=== PATIENT | male | born 1960 | race Caucasian/White ===

== ENCOUNTER 2017-09-12 16:55 | Inpatient (IN) | payer BC ==
[2017-09-12] MEDS ORDERED: ETOMIDATE 40 MG/20 ML INJ ONE (17:00)
[2017-09-12] MEDS ORDERED: NS 1,000 ML IV ONE ×2 (17:00→17:27)
[2017-09-12] MEDS ORDERED: ETOMIDATE 40 MG/20 ML INJ IVP ONE (17:02)
--- NOTE | 2017-09-12 17:14 | EDPHY ---
H & P Time Seen by Provider: 09/12/17 16:59 HPI/ROS: HPI SVT, pneumonia. 56-year-old male by ambulance from the urgent care [facility]. Dr. Mahamed Sewell, his wait staff was evaluating this patient. He came in with cough , palpitation and shortness of breath initially. He reports he developed a cough Sunday evening. He has a history of cardiomyopathy and lymphoma and has had an aortic valve replacement. He reports onset of palpitations at 12:30 p.m. today. EKG was performed at the [facility]. This showed SVT. The patient has an underlying left bundle branch block secondary to his aortic valve replacement. Dr. Mahamed Sewell gave the patient 6 mg of IV adenosine with no resolution of SVT followed by 12 mg of IV adenosine with no resolution. I spoke with Dr. Sewell personally. He recommends electrocardioversion followed by workup and treatment of the patient's pneumonia. He states the patient's rate has been consistent in the mid 160s under his care. ROS: Constitutional: No fever, no chills. No weakness. Eyes: No discharge. No changes in vision. ENT: No sore throat. No nasal congestion or rhinorrhea. Respiratory: As above. Cardiac: No chest pain, as above. Gastrointestinal: No abdominal pain, no vomiting, no diarrhea. Genitourinary: No hematuria. No dysuria or increased frequency with urination. Musculoskeletal: No back pain. No neck pain. No myalgias or arthralgias. Skin: No rashes. Neurological: No headache. No focal weakness or altered sensation. Past medical history: As above. Social history: Nonsmoker. Here by himself. Denies alcohol. Physical Exam: General Appearance: Alert, dry cough intermittently, he appears uncomfortable. This patient is responding to questions appropriately and in full sentences. This patient appears well-hydrated and well-nourished. Eyes: Pupils equal and round no pallor or injection. No lid edema, erythema or injection. Respiratory: There are no retractions, tachypneic with a respiratory rate 25, decreased lung sounds at the right base with scant rhonchi and wheezing. Cardiovascular: Tachycardia. No murmur appreciated. Gastrointestinal: Abdomen is soft and nontender, no masses, bowel sounds normal. No focal tenderness at McBurney's point. No Christopher sign. Neurological: Motor sensory function is grossly intact. Cranial nerves are normal. Skin: Warm and dry, no rashes. Musculoskeletal: Neck is supple and nontender. Extremities are symmetrical. All joints range without pain or impingement. Psychiatric: No agitation. No depression. Database: EKG: EKG time is 4:59 p.m.: EKG shows a regular tachycardia with ventricular rate of 167. Incomplete left bundle branch block. Appropriate discordance noted. Interpreted by me. EKG time is 5:26 p.m.: EKG shows a sinus tachycardia with ventricular rate of 122. There is an underlying left bundle-branch block with appropriate discordance. Interpreted by me. Imaging: Chest x-ray AP portable; the cardiac mediastinal silhouette is unremarkable. Infiltrative process right lower lung field. No pneumothorax.. No other acute cardiopulmonary disease process noted. Interpreted by me. Procedures: Procedure: Electrical cardioversion. The patient was electrically cardioverted for SVT after failed conversion with adenosine as noted. The patient was on a continuous vehicle monitor technician, with airway equipment at the bedside. The patient was on continuous pulse oximetry. The cardioversion was attempted with 300 joules biphasic current. The cardioversion was successful. The patient tolerated the procedure well with no complications. The procedure was performed by myself. Emergency department course: IV placed. Vital signs reviewed. EKG obtained and reviewed by myself. Patient started on IV normal saline with 1 L to be given over the next hour. I discussed electrocardioversion with the patient. This had already been discussed with him by Dr. Mahamed Sewell. He verbally consents. Plan will be to sedate the patient with 10 mg of IV etomidate followed by electrocardioversion. 5:35 p.m., patient has had 2 L of IV normal saline. He will be given 2 g of IV magnesium status post cardioversion. Given for potential bronco dilatory effects and antiarrhythmic effects. EKG repeated and reviewed by myself. He has a sinus tachycardia with an underlying left bundle branch block ventricular rate of 115-120. Severe sepsis protocol initiated. He will be given 1 g of IV Rocephin and 500 mg of IV azithromycin. 6:00 p.m., blood pressure currently 135/83. telemetry monitor shows a sinus rhythm with ventricular rate of 105. Patient has had 2 L of IV normal saline. 2nd lactate has been drawn. Plan for admission discussed with the patient. 6:15 p.m., repeat venous lactate is 1.6 after 2 L of IV normal saline. Blood pressure currently 155/74, vehicle monitor technician shows a sinus rhythm ventricular rate of 104. 6:20 p.m., spoke with on-call hospitalist Dr. Margoth Hooker. Case discussed in detail. Patient accepted for admission to the hospitalist service PCU. Differential Diagnosis: The differential diagnosis on this patient includes but is not limited to pneumonia, SVT. Acute coronary syndrome, pulmonary embolism unlikely. This represents a partial list of diagnoses considered. These considerations are based on history, physical exam, past history, reassessment and diagnostic testing. Smoking Status: Never smoked Constitutional: Initial Vital Signs Temperature (C) 38.8 C H 09/12/17 17:04 Heart Rate 166 H 09/12/17 17:04 Respiratory Rate 16 09/12/17 17:04 Blood Pressure 137/88 H 09/12/17 17:04 O2 Sat (%) 98 09/12/17 17:04 O2 Delivery Mode Nasal Cannula O2 (L/minute) 4 Allergies/Adverse Reactions: bacitracin [Bacitracin] Allergy (Intermediate, Verified 04/14/16 10:36) Other-Enter Comments adhesive [Adhesive] Allergy (Mild, Verified 04/14/16 10:36) Other-Enter Comments HAYFEVER Allergy (Mild, Uncoded 04/14/16 10:36) Other-Enter Comments Home Medications: Medication Instructions Recorded Aspirin [Aspirin 81mg (*)] 81 mg PO DAILY 03/01/16 Atorvastatin Calcium [Lipitor 20 20 mg PO HS 03/01/16 mg (*)] Levothyroxine [Synthroid 200 mcg 200 mcg PO DAILY06 03/01/16 (*)] Magnesium Oxide [Magnesium] 500 mg PO DAILY 03/01/16 Multivitamins [Multivitamin (*)] 1 each PO DAILY 03/01/16 Riboflavin [Vitamin B-2] 500 mg PO DAILY 03/01/16 Testosterone 10 gm TP DAILY 03/01/16 Ubidecarenone/Vit E Acet [Co Q-10 1 each PO DAILY 03/01/16 100 mg Softgel] Medical Decision Making Critical Care Time: I spent a total of 47 minutes of critical care time in obtaining history, performing a physical exam, bedside monitoring of interventions, collecting and interpreting tests and discussion with consultants but not including time spent performing procedures. - Data Points Laboratory Results: Laboratory Results 09/12/17 17:17 09/12/17 17:17 Microbiology Results: MICROBIOLOGY 09/12/17 18:10 Nasal, Sinus - Swab Respiratory Panel (PCR) - Final No Organism Detected Medications Given: Acetaminophen (Tylenol) 650 mg PO Q4 PRN PRN Reason: Pain, Mild/Fever, Can Take PO Stop: 03/11/18 22:52 Last Admin: 09/13/17 04:09 Dose: 650 mg Albuterol/Ipratropium (Duoneb) 3 ml IH Q6 HECTOR Stop: 03/12/18 00:00 Last Admin: 09/13/17 05:50 Dose: 3 ml Aspirin (Aspirin) 81 mg PO DAILY HECTOR Stop: 03/12/18 08:59 Last Admin: 09/13/17 09:31 Dose: 81 mg Benzonatate (Tessalon Pearles) 200 mg PO TID PRN PRN Reason: Cough, Mild Stop: 03/11/18 22:59 Last Admin: 09/13/17 04:12 Dose: 200 mg Enoxaparin Sodium (Lovenox) 40 mg SC DAILY HECOTR Stop: 03/12/18 08:59 Last Admin: 09/13/17 09:34 Dose: Not Given Guaifenesin/Codeine Phosphate (Robitussin Ac) 10 ml PO Q6HRS PRN PRN Reason: Cough, Moderate Stop: 03/11/18 22:59 Last Admin: 09/13/17 00:17 Dose: 10 ml Azithromycin 500 mg/ Dextrose 255 mls @ 255 mls/hr IV DAILY HECTOR PRN Reason: Protocol Stop: 10/13/17 08:59 Last Admin: 09/13/17 09:27 Dose: 255 mls Ceftriaxone Sodium/Dextrose (Rocephin 1 Gm (Premix)) 50 mls @ 100 mls/hr IV DAILY HECTOR PRN Reason: Protocol Stop: 10/13/17 08:59 Last Admin: 09/13/17 09:26 Dose: 50 mls Sodium Chloride (Ns) 1,000 mls @ 100 mls/hr IV CONT HECTOR Stop: 03/11/18 22:59 Last Admin: 09/12/17 23:25 Dose: 1,000 mls Levothyroxine Sodium (Synthroid) 200 mcg PO DAILY06 [facility] Stop: 03/12/18 05:59 Last Admin: 09/13/17 06:02 Dose: 200 mcg Metoprolol Succinate (Toprol Xl) 25 mg PO DAILY HECTOR Stop: 03/12/18 08:59 Last Admin: 09/13/17 09:31 Dose: 25 mg Prednisone (Prednisone) 40 mg PO DAILY HECTOR Stop: 03/11/18 22:59 Last Admin: 09/13/17 09:33 Dose: 40 mg Testosterone (Androgel 1%) 10 gm TD DAILY HECTOR Stop: 03/12/18 08:59 Last Admin: 09/13/17 10:04 Dose: Not Given Discontinued Medications Acetaminophen (Tylenol) 650 mg PO Q6H PRN PRN Reason: Pain, Mild/Fever, Can Take PO Stop: 03/11/18 19:55 Last Admin: 09/12/17 20:14 Dose: 650 mg Benzonatate (Tessalon Pearles) 100 mg PO EDNOW ONE Stop: 09/12/17 18:39 Last Admin: 09/12/17 18:41 Dose: 100 mg Etomidate (Etomidate) 10 mg IVP EDNOW ONE Stop: 09/12/17 17:03 Last Admin: 09/12/17 17:26 Dose: 10 mg Sodium Chloride (Ns) 1,000 mls @ 0 mls/hr IV EDNOW ONE; Wide Open PRN Reason: Protocol Stop: 09/12/17 17:01 Last Admin: 09/12/17 17:15 Dose: 1,000 mls Magnesium Sulfate (Magnesium Sulf 2 Gm (Premix)) 50 mls @ 50 mls/hr IV EDNOW ONE Stop: 09/12/17 18:23 Last Admin: 09/12/17 17:39 Dose: 50 mls Sodium Chloride (Ns) 1,000 mls @ 0 mls/hr IV ONCE ONE PRN Reason: Wide Open Stop: 09/12/17 17:28 Last Admin: 09/12/17 17:27 Dose: 1,000 mls Azithromycin 500 mg/ Dextrose 255 mls @ 255 mls/hr IV EDNOW ONE PRN Reason: Protocol Stop: 09/12/17 18:36 Last Admin: 09/12/17 18:18 Dose: 255 mls Ceftriaxone Sodium/Dextrose (Rocephin 1 Gm (Premix)) 50 mls @ 100 mls/hr IV EDNOW ONE PRN Reason: Protocol Stop: 09/12/17 18:06 Last Admin: 09/12/17 17:45 Dose: 50 mls Sodium Chloride (Ns) 2,700 mls @ 5,400 mls/hr 30 ml/kg infuse over 30 min ( 2700 ml) IV EDNOW ONE PRN Reason: Protocol Stop: 09/12/17 18:06 Last Admin: 09/12/17 18:20 Dose: Not Given Departure - Departure Disposition: [facility] Inpatient Acute Clinical Impression: SVT (supraventricular tachycardia), Pneumonia, Severe sepsis, Elevated troponin , Reactive airway disease
--- NOTE | 2017-09-12 17:15 | CPEKG ---
Heart Rate: 167 RR Interval: 359 QRSD Interval: 120 QT Interval: 304 QTC Interval: 507 P [place]: 0 QRS [place]: 43 T Wave [place]: -85 EKG Severity - ABNORMAL ECG - EKG Impression: SUPRAVENTRICULAR TACHYCARDIA EKG Impression: INCOMPLETE LEFT BUNDLE BRANCH BLOCK EKG Impression: ANT-SEPT INJURY, PROBABLE EARLY ACUTE INFARCT Electronically Signed By: Angelica Jane 12-Sep-2017 20:58:51
[2017-09-12] MEDS ORDERED: MAGNESIUM SULF 2 GM/WATER 50 ML IV ONE (17:24)
[2017-09-12 17:27] LABS: % IMMATURE GRANULYOCYTES 0.4 % (0.0-1.1); ABSOLUTE IMMATURE GRANULOCYTES 0.06 10^3/uL (0.00-0.10); ADD DIFF? NO; ADD MORPH? NO; ADD SCAN? NO; ATYPICAL LYMPHOCYTE FLAG 20 (0-99); FRAGMENT RBC FLAG 0 (0-99); HEMATOCRIT 47.4 % (40.0-51.0); HEMOGLOBIN 16.4 g/dL (13.7-17.5); LEFT SHIFT FLG 20 (0-99); LIPEMIA HEMOLYSIS FLAG 90 (0-99); MEAN CELL HEMOGLOBIN 31.8 pg (27.9-34.1); MEAN CELL HEMOGLOBIN CONCENTR. 34.6 g/dL (32.4-36.7); MEAN PLATELET VOLUME 10.4 fL (8.7-11.7); PLATELET CLUMPS FLAG 0 (0-99); PLATELET COUNT 239 10^3/uL (150-400); RED BLOOD CELL COUNT 5.15 10^6/uL (4.40-6.38); RED CELL DISTRIBUTION WIDTH 14.9 % (11.5-15.2)
--- NOTE | 2017-09-12 17:27 | CPEKG ---
Heart Rate: 122 RR Interval: 492 P-R Interval: 136 QRSD Interval: 124 QT Interval: 344 QTC Interval: 490 P [place]: 66 QRS [place]: 42 T Wave [place]: 84 EKG Severity - ABNORMAL ECG - EKG Impression: SINUS TACHYCARDIA EKG Impression: PROBABLE LEFT ATRIAL ABNORMALITY EKG Impression: LEFT BUNDLE BRANCH BLOCK Electronically Signed By: Angelica Jane 12-Sep-2017 20:58:51
[2017-09-12] MEDS ORDERED: NS 2,700 ML IV ONE (17:37)
[2017-09-12] MEDS ORDERED: AZITHROMYCIN IV 500 MG in D5W 250 ML IV ONE (17:37)
[2017-09-12 17:38] LABS: INR 1.12 (0.83-1.16); PROTIME(PATIENT) 14.3 SEC (12.0-15.0)
[2017-09-12 17:39] LABS: APTT 29.7 SEC (23.0-38.0)
[2017-09-12 17:48] LABS: ANION GAP 15 mEq/L (8-16); CALCIUM 8.5 mg/dL (8.5-10.4); CARBON DIOXIDE 24 mEq/l (22-31); CHLORIDE 100 mEq/L (97-110); CREATININE 1.2 mg/dL (0.7-1.3); GLOMERULAR FILTRATION RATE > 60; GLUCOSE 88 mg/dL (70-100); POTASSIUM 4.7 mEq/L (3.5-5.2); SODIUM 139 mEq/L (134-144)
[2017-09-12 17:59] LABS: TROPONIN I 0.156 ng/mL (0.000-0.034)
[2017-09-12 18:22] LABS: LACGHOST ORDER
[2017-09-12] MEDS ORDERED: BENZONATATE 100 MG CAP PO ONE (18:38)
[2017-09-12] MEDS ORDERED: ACETAMINOPHEN 325 MG TAB PO PRN (19:56)
[2017-09-12] MEDS ORDERED: ONDANSETRON 4 MG/2 ML VIAL IVP PRN (22:53)
[2017-09-12] MEDS ORDERED: NS 1,000 ML IV SCH (23:00)
[2017-09-12] MEDS: predniSONE 20 MG TAB PO SCH (23:24)
[2017-09-12] MEDS: IPRATROPIUM/ALBUTEROL 3 ML DEYVIAL IH SCH (23:30)
[2017-09-13] MEDS: ACETAMINOPHEN 325 MG TAB PO PRN ×4 (00:17→19:23)
[2017-09-13] MEDS: guaiFENesin/CODEINE PHOS 10 ML UDCUP PO PRN ×2 (00:17→22:34)
--- NOTE | 2017-09-13 02:34 | GHP ---
[f rep st] HISTORY AND PHYSICAL DATE OF ADMISSION: 09/12/2017 CHIEF COMPLAINT: Tachycardia, cough. HISTORY: The patient is a 56-year-old male who got sick starting Sunday night when he developed a fe ralph. He has had cough and shortness of breath. He tried to tough it out at home until today he noti stevie his heart rate was 160. He presented to [facility] and was found to be in SVT. He was give n 6 mg and then 12 mg of IV adenosine without result. He subsequently came to the emergency room. I n the ER, he was successfully cardioverted. He complains of a dry nonproductive cough. He has chest wall pain secondary to the excessive coughin g. He also felt a little chest pain when his heart rate was running 160. He did get a flu shot this year. PAST MEDICAL HISTORY: 1. 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 2. Congestive heart failure secondary to diastolic dysfunction. 3. Radiation-induced aortic stenosis, status post porcine aortic valve replacement in 1999. 4. 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 5. Follicular thyroid cancer. 6. Malignant melanoma, status post resection. 7. Radiation-induced coronary artery disease. MEDICATIONS: Please see computer record for full detailed list. ALLERGIES: Bacitracin. SOCIAL HISTORY: No smoking. One glass of wine per week. He lives his . He works as a software support representative. REVIEW OF SYSTEMS: Complete review of systems obtained. Review of systems is negative regarding con stitutional, HEENT, GI, pulmonary, cardiovascular, , hematology, skin, musculoskeletal, endocrine, psych, except for positives and negatives as noted in HPI. FAMILY HISTORY: Reviewed and noncontributory to presenting complaint. PHYSICAL EXAMINATION: GENERAL: Well-developed, well-nourished male, in no acute distress. VITAL SI GNS: Temperature 39.4, pulse 125, blood pressure 168/78, saturating 94% on 4 L. EYES: Normal conju nctivae. Pupils are equal, round, reactive to light. ENT: Normal ears and nose. Hearing intact. Normal lips and teeth. Oropharynx moist. NECK: Trachea midline. No thyromegaly. CHEST: Normal r espiratory effort. LUNGS: Tight wheezes throughout with rales and rhonchi. CARDIOVASCULAR: Regula r rate and rhythm. No murmur. No lower extremity edema. ABDOMEN: Soft. Nontender. No hepatosple nomegaly. SKIN: Warm, dry, intact. No rash. MUSCULOSKELETAL: No cyanosis or clubbing. Strength 5/5 upper and lower extremities. NEUROLOGIC: Cranial nerves intact. Normal sensation to light touc h. PSYCH: Alert and oriented x3. Normal mood and affect. Normal judgment and insight. Normal mem ory. LABORATORY DATA: White count 16.03, hematocrit 47.4, platelets 239. Sodium 139, potassium 4.7, chlo ride 100, bicarb 24, BUN 14, creatinine 1.2, glucose 88. INR is 1.12. Troponin 0.156. Lactate init ially 2.3, now down to 1.6. EKG, reviewed by me, my personal interpretation is normal sinus tachycardia with left bundle branch b lock. Chest x-ray is positive for right lower lobe pneumonia. ASSESSMENT AND PLAN: 1. Pneumonia with severe sepsis. Blood cultures have been sent. His lactate is clearing with IV fl uids. Will continue ceftriaxone and azithromycin. 2. Reactive airways disease exacerbation. He has extensive wheezing. Will start him on steroids an d nebulizers. 3. Supraventricular tachycardia, status post adenosine without results, subsequent cardioversion in the emergency room. Will continue to monitor. Will watch on telemetry and check an echocardiogram. Will start a low-dose daily metoprolol. 4. Troponin elevation. I suspect this is due to the rapid rate of his supraventricular tachycardia but will trend troponins and could consider stress testing, especially since he developed chest pain during these episodes of rapid rates. 5. Burkitt lymphoma, in remission. 6. Porcine aortic valve replacement. Will recheck an echocardiogram as above. CODE STATUS: Full. ADMISSION STATUS: Will admit to inpatient. As he is medically complex, anticipate greater than 2 mi dnights. DEEP VENOUS THROMBOSIS PROPHYLAXIS: He is high risk. Will place on subcu Lovenox. /[id number]/MODL
[2017-09-13] MEDS: BENZONATATE 100 MG CAP PO PRN ×3 (04:12→20:32)
[2017-09-13] MEDS: IPRATROPIUM/ALBUTEROL 3 ML DEYVIAL IH SCH ×4 (05:50→23:08)
[2017-09-13] MEDS: LEVOTHYROXINE 100 MCG TAB PO SCH (06:02)
[2017-09-13 06:25] LABS: % IMMATURE GRANULYOCYTES 0.4 % (0.0-1.1); ABSOLUTE IMMATURE GRANULOCYTES 0.05 10^3/uL (0.00-0.10); ADD DIFF? NO; ADD MORPH? NO; ADD SCAN? NO; ATYPICAL LYMPHOCYTE FLAG 0 (0-99); FRAGMENT RBC FLAG 0 (0-99); HEMATOCRIT 44.2 % (40.0-51.0); HEMOGLOBIN 15.2 g/dL (13.7-17.5); LEFT SHIFT FLG 0 (0-99); LIPEMIA HEMOLYSIS FLAG 90 (0-99); MEAN CELL HEMOGLOBIN 31.6 pg (27.9-34.1); MEAN CELL HEMOGLOBIN CONCENTR. 34.4 g/dL (32.4-36.7); MEAN CELL VOLUME 91.9 fL (81.5-99.8); MEAN PLATELET VOLUME 10.4 fL (8.7-11.7); PLATELET CLUMPS FLAG 10 (0-99); PLATELET COUNT 207 10^3/uL (150-400); RED BLOOD CELL COUNT 4.81 10^6/uL (4.40-6.38); RED CELL DISTRIBUTION WIDTH 14.9 % (11.5-15.2)
[2017-09-13 06:41] LABS: ANION GAP 13 mEq/L (8-16); CALCIUM 8.1 mg/dL (8.5-10.4); CARBON DIOXIDE 22 mEq/l (22-31); CHLORIDE 104 mEq/L (97-110); CHOLESTEROL 111 mg/dL (140-220); CHOLESTEROL/HDL RATIO 3.08 RATIO (1.00-4.97); CREATININE 1.1 mg/dL (0.7-1.3); GLOMERULAR FILTRATION RATE > 60; GLUCOSE 173 mg/dL (70-100); HIGH DENSITY LIPOPROTEIN 36 mg/dL (40-65); LDL/HDL RATIO 1.75 RATIO (1.00-3.64); LOW DENSITY LIPOPROTEIN 63 mg/dL (80-100); NON-HIGH DENSITY LIPOPROTEIN 75 mg/dL (90-129); POTASSIUM 5.2 mEq/L (3.5-5.2); SODIUM 139 mEq/L (134-144); TRIGLYCERIDE 62 mg/dL (40-150); VERY LOW DENSITY LIPOPROTEINS 12 mg/dL (8-25)
[2017-09-13 06:48] LABS: TROPONIN I 0.208 ng/mL (0.000-0.034)
[2017-09-13] MEDS ORDERED: ENOXAPARIN 40 MG/0.4 ML SYR SC SCH (09:00)
[2017-09-13] MEDS ORDERED: TESTOSTERONE 1% 5 GM GEL PKT TD SCH (09:00)
--- NOTE | 2017-09-13 09:12 | CPEKG ---
Heart Rate: 91 RR Interval: 659 P-R Interval: 156 QRSD Interval: 138 QT Interval: 428 QTC Interval: 527 P [place]: 70 QRS [place]: 59 T Wave [place]: 81 EKG Severity - ABNORMAL ECG - EKG Impression: SINUS RHYTHM EKG Impression: PROBABLE LEFT ATRIAL ABNORMALITY EKG Impression: LEFT BUNDLE BRANCH BLOCK Electronically Signed By: Brad Christie 13-Sep-2017 18:23:07
[2017-09-13] MEDS: AZITHROMYCIN IV 500 MG in D5W 250 ML IV SCH (09:27)
[2017-09-13] MEDS: ASPIRIN 81 MG CHEWABLE TAB PO SCH (09:31)
[2017-09-13] MEDS: METOPROLOL SUCCINATE XR 25 MG TAB PO SCH (09:31)
[2017-09-13] MEDS: predniSONE 20 MG TAB PO SCH (09:33)
--- NOTE | 2017-09-13 10:50 | PDMN ---
Medical Necessity Medical necessity: Patient meets INPT criteria per physician note and MCG Systemic or Infectious Condition GRG (presents with severe sepsis w/lactic acid of 2.3, Tmax 39.4, ongoing tachycardia of 120's after SVT cardioversion; elevated troponins likely due to rapid rate of earlier SVT; CXR shows persistent RLL pneumonia; anticipated LOS > 2 midnights for IV antibiotics, freq nebs, initiation of steroids.)
[2017-09-13] MEDS: guaiFENesin 600 MG TAB.ER PO SCH ×2 (12:22→20:32)
--- NOTE | 2017-09-13 13:55 | ASMTCMCOM ---
CM Note CM Note Notes: Patient admitted for PNA and RAD. He is being treated with antibiotics, steroids, and nebulizers. Also being monitored via telemtry for SVT. He lives with , works, and is independent in all ADLs. No therapies ordered, no d/c needs anticipated. CM available if needs arise. Date Signed: 09/13/2017 01:55 PM Electronically Signed By:Glenna Fuller RN
--- NOTE | 2017-09-13 16:16 | ECHO ---
[email or web address] [address] Main: [phone] Fax: Transthoracic Echocardiogram Name: JOSE HAMMONDS MR#: [id number] Study Date: 09/13/2017 Study Time: 02:28 PM Date of : 1960 Age: 56 year(s) Height: 180.3 cm (71 in.) Weight: 90.27 kg (199 lb.) BSA: 2.1 m2 Gender: Male Examination: Echo Indication: Supraventricular Tachycardia, hx of AVR Image Quality: Contrast: Requested by: Margoth Hooker BP: 108 mmHg/72 mmHg Heart Rate: Rhythm: Indication: Supraventricular Tachycardia, hx of AVR Procedure Staff Screen Printing Machine Operator: Luisa Sabillon Reading Physician: Vinny Jaime Requesting Provider: Conclusions: Normal size left ventricle. Mild concentric LV hypertrophy. The ejection fraction is estimated to be 60-65 %. LV septal motion consistent with post-op state. The left atrium is mildly dilated. Mild mitral annular calcification. Mild to moderate mitral regurgitation. Aortic valve prosthesis is normal. The aortic valve is a porcine bioprosthesis. Mild tricuspid regurgitation is present. The pulmonary artery pressure is normal. Measurements: Chambers Valvular Assessment AV/MV Valvular Assessment TV/PV Normal Normal Normal Name Value Range Name Value Range Name Value Range IVSd (2D): 1.4 cm (0.6 cm-1.1 AV meanP mmHg ( - ) TR Vmax: 2.52 mm/s ( - ) cm) MIGUEL (VTI): 0.8 cm ( - ) TR PGmax: 25 mmHg ( - ) LVDd (2D): 4.1 cm (4.2 cm-5.9 MV E Vmax: 1.69 m/s ( - ) syst. PAP: 30 mmHg ( - ) cm) MV A Vmax: 1.23 m/s ( - ) LVDs (2D): 2.5 cm (2.1 cm-4 MV E/A: 1.37 ( - ) cm) MV meanP mmHg ( - ) LVPWd (2D): 1.2 cm (0.6 cm-1 cm) MV PHT: 0.063 s ( - ) LVOTd 1.6 cm 1.6 cm mm MVA (Vmax): 1.3 m/s ( - ) LVEF (MOD4): 69 % (>=55 %) MVA (PHT): 3.5 s ( - ) EF Range: 60-65 % Continued Measurements: Chambers Valvular Assessment AV/MV Valvular Assessment TV/PV Patient: JOSE HAMMONDS Study Date: 09/13/2017 Page 1 of 2 02:28 PM Name Value Name Value Name Value LADs: 4.0 cm MV DecTime: 214 m/s CVP (est.): 5 mmHg LADs Lon.8 cm MV VTI: 34.00 cm LA Area: 22.5 cm2 Findings: Left Ventricle: Normal size left ventricle. Mild concentric LV hypertrophy. The ejection fraction is estimated to be 60-65 %. LV septal motion consistent with post-op state. Right Ventricle: Normal size right ventricle. Left Atrium: The left atrium is mildly dilated. Right Atrium: The right atrium is normal in size. Mitral Valve: Mild mitral annular calcification. Mild to moderate mitral regurgitation. The mitral valve leaflets appear thickened, but open well. MV max PG is 13mmHG. MV mean PG is 5mmHG.. Aortic Valve: Aortic valve prosthesis is normal. The aortic valve is a porcine bioprosthesis. AV max PG is 32mmHG. AV mean PG is 18mmHG.. Tricuspid Valve: The tricuspid valve appears normal. Mild tricuspid regurgitation is present. The pulmonary artery pressure is normal. Pulmonic Valve: The pulmonic valve is normal in appearance. Pericardium: No pericardial effusion. (No Signature Object) Patient: JOSE HAMMONDS Study Date: 09/13/2017 Page 2 of 2 02:28 PM [id number]
--- NOTE | 2017-09-13 16:44 | HOSPPROG ---
Hospitalist Progress Note Assessment/Plan: Assessment: 56-year-old male presents with severe sepsis in the setting of acute reactive airway exacerbation, community-acquired pneumonia, supraventricular tachycardia Plan: 1. Severe sepsis. Present on admission, evidenced by autonomic dysregulation in the setting of infection with notable tachycardia, tachypnea, fever, leukocytosis, end-organ failure including myocardial ischemia with elevated troponin level, metabolic lactic acidosis -status post empiric IV antibiotics and IV fluids 2. Community-acquired pneumonia. Present on admission, evidenced by right lower lobe infiltrate on chest x-ray, personally interpreted with tachypnea, cough, oxygen requirement -continue supplemental oxygen -day 2 of IV ceftriaxone and IV azithromycin -blood cultures currently pending, respiratory viral panel negative 3. Acute reactive airway exacerbation. Evidenced by diffuse expiratory wheezes and bronchial breath sounds, likely precipitated by pneumonia -unresolved, bronchial breath sounds persist -day 2 of 5 of prednisone -continue scheduled duo nebs -supportive care with antitussives mucolytics 4. Acute metabolic acidosis. Secondary to lactic acid, in the setting of severe sepsis, improved with IV fluids and treatment of sepsis 5. Transient myocardial ischemia. The troponin level 0.2, secondary to a end- organ failure the setting sepsis -recommend outpatient cardiac risk stratification after this acute episode has resolved 6. Supraventricular tachycardia. Acute, new problem this provider, further workup indicated. Most likely provoked in the setting of severe infection, patient without any known history of atrial arrhythmia, EKG on presentation with clear SVT, sinus tach after cardioversion, personally interpreted EKG -reviewed outside records including 03/16/2016 cardiology progress note by Dr. Mahamed Sewell, reports the patient has had history of pulmonary edema and poor seen valve, but no arrhythmia, only mild stenosis -get echocardiogram -recommend outpatient cardiology follow-up which should include outpatient rn cardiac rehab to gauge recurrence, burden -cardioverted in the emergency department 7. Chronic diastolic congestive heart failure. No evidence of acute exacerbation, continue monitor volume status closely Diet. Regular Prophylaxis. High risk patient, patient declined Lovenox, placed on SCDs Code. Full Disposition. Anticipated discharge uncertain, remains clinically on resolved Subjective: Patient reports ongoing shortness of breath with any activity Objective: Vital Signs Temp Pulse Resp BP Pulse Ox 36.8 C 92 22 H 130/80 H 95 09/13/17 15:17 09/13/17 15:17 09/13/17 15:17 09/13/17 15:17 09/13/17 15:17 Laboratory Results 09/13/17 06:00 09/13/17 06:00 09/12/17 09/13/17 09/14/17 05:59 05:59 05:59 Intake Total 1223 Output Total 1775 1000 Balance -552 -1000 PT 14.3 SEC (12.0-15.0) 09/12/17 17:17 INR 1.12 (0.83-1.16) 09/12/17 17:17 - Physical Exam Constitutional: no apparent distress, not in pain, uncomfortable, other ( Acutely ill-appearing) Cardiovascular: systolic murmur (1/6 at the sternum), No irregularly irregular, No tachycardia, No edema Respiratory: bronchial breath sounds (Bilaterally), rhonchi (Right base), No expiratory wheeze, No respiratory distress Gastrointestinal: normoactive bowel sounds, soft, non-tender abdomen, no palpable masses Neurologic: AAOx3, sensation intact bilaterally, No weakness, No facial droop Psychiatric: interacting appropriately, not anxious, not encephalopathic, thought process linear ICD10 Worksheet Patient Problems: Problems Problem Status Onset Elevated troponin Acute Pneumonia Acute Reactive airway disease Acute SVT (supraventricular tachycardia) Acute Severe sepsis Acute Cough Acute Hypoxia Acute Pulmonary edema Acute
[2017-09-13] MEDS: CEPACOL LOZENGE PO PRN (19:36)
[2017-09-13] MEDS: ATORVASTATIN CALCIUM 20 MG TAB PO SCH (20:32)
[2017-09-14] MEDS: ACETAMINOPHEN 325 MG TAB PO PRN ×5 (01:43→21:37)
[2017-09-14] MEDS ORDERED: METOCLOPRAMIDE 10 MG/2 ML VIAL IVP ONE (03:03)
[2017-09-14] MEDS: CEPACOL LOZENGE PO PRN (03:19)
[2017-09-14] MEDS: BENZONATATE 100 MG CAP PO PRN ×3 (04:51→21:32)
[2017-09-14] MEDS: guaiFENesin/CODEINE PHOS 10 ML UDCUP PO PRN ×2 (04:51→23:02)
[2017-09-14 05:33] LABS: ANION GAP 11 mEq/L (8-16); CALCIUM 8.3 mg/dL (8.5-10.4); CARBON DIOXIDE 26 mEq/l (22-31); CHLORIDE 103 mEq/L (97-110); CREATININE 1.1 mg/dL (0.7-1.3); GLOMERULAR FILTRATION RATE > 60; GLUCOSE 79 mg/dL (70-100); POTASSIUM 4.2 mEq/L (3.5-5.2); SODIUM 140 mEq/L (134-144)
[2017-09-14] MEDS: IPRATROPIUM/ALBUTEROL 3 ML DEYVIAL IH SCH ×4 (06:09→23:23)
[2017-09-14] MEDS: LEVOTHYROXINE 100 MCG TAB PO SCH (06:19)
[2017-09-14] MEDS: guaiFENesin 600 MG TAB.ER PO SCH ×2 (08:01→21:29)
[2017-09-14] MEDS: ASPIRIN 81 MG CHEWABLE TAB PO SCH (08:01)
[2017-09-14] MEDS: METOPROLOL SUCCINATE XR 25 MG TAB PO SCH (08:01)
[2017-09-14] MEDS: predniSONE 20 MG TAB PO SCH (08:01)
[2017-09-14] MEDS: AZITHROMYCIN IV 500 MG in D5W 250 ML IV SCH (09:25)
[2017-09-14] MEDS ORDERED: FUROSEMIDE 20 MG/2 ML VIAL IVP ONE (10:25)
--- NOTE | 2017-09-14 10:35 | HOSPPROG ---
Hospitalist Progress Note Assessment/Plan: # acute hypoxic resp failure - clinical picture most c/w pna, however consider PE given hypoxia and risk factors - check CTA tomorrow if still very hypoxic and renal function ok; I am reluctant to order CTA today with lasix IV and borderline SCr - IS, flutter valve # R basilar pna, RAD exacerbation - cont to tx for CAP with rocephin and azith; cont pred - follow sputum cx and blood cx # severe sepsis - d/t pna; resolved # indet troponin - d/t demand; cath 2014 with mild CAD - agree with outpatient stress # SVT - resolved with DCCV - cont metop # acute on chronic dCHF, porcine AVR - lasix 20 IV x 1 today # hypothyroid - synthroid Subjective: fever last night; still feels very SOB Objective: Vital Signs Temp Pulse Resp BP Pulse Ox 36.9 C 103 H 20 114/71 94 09/14/17 08:00 09/14/17 08:01 09/14/17 08:00 09/14/17 08:01 09/14/17 08:00 Microbiology 09/13/17 22:30 - Final Sputum, Expectorated Laboratory Results 09/13/17 06:00 09/14/17 04:08 09/13/17 09/14/17 09/15/17 05:59 05:59 05:59 Intake Total 1223 2150 Output Total 1775 2550 Balance -552 -400 PT 14.3 SEC (12.0-15.0) 09/12/17 17:17 INR 1.12 (0.83-1.16) 09/12/17 17:17 chart reviewed CXR personally reviewed - Physical Exam Ears, Nose, Mouth, Throat: moist mucous membranes, hearing normal Cardiovascular: regular rate and rhythym, no murmur, rub, or gallop Respiratory: inspiratory crackles (R base), respiratory distress (mild), No expiratory wheeze, No rhonchi Gastrointestinal: normoactive bowel sounds, soft, non-tender abdomen, no palpable masses ICD10 Worksheet Patient Problems: Problems Problem Status Onset Severe sepsis Acute Cough Acute Pulmonary edema Acute Hypoxia Acute SVT (supraventricular tachycardia) Acute Pneumonia Acute Elevated troponin Acute Reactive airway disease Acute
[2017-09-14] MEDS: ATORVASTATIN CALCIUM 20 MG TAB PO SCH (21:29)
[2017-09-15] MEDS: LEVOTHYROXINE 100 MCG TAB PO SCH (04:35)
[2017-09-15] MEDS: guaiFENesin/CODEINE PHOS 10 ML UDCUP PO PRN ×2 (04:37→23:45)
[2017-09-15] MEDS: IPRATROPIUM/ALBUTEROL 3 ML DEYVIAL IH SCH ×3 (05:38→17:02)
[2017-09-15 05:54] LABS: % IMMATURE GRANULYOCYTES 0.3 % (0.0-1.1); ABSOLUTE IMMATURE GRANULOCYTES 0.04 10^3/uL (0.00-0.10); ABSOLUTE NRBC COUNT 0.02 10^3/uL (0-0.01); ADD DIFF? NO; ADD MORPH? NO; ADD SCAN? NO; ATYPICAL LYMPHOCYTE FLAG 0 (0-99); FRAGMENT RBC FLAG 10 (0-99); HEMATOCRIT 41.2 % (40.0-51.0); HEMOGLOBIN 14.1 g/dL (13.7-17.5); LEFT SHIFT FLG 10 (0-99); LIPEMIA HEMOLYSIS FLAG 90 (0-99); MEAN CELL HEMOGLOBIN 31.4 pg (27.9-34.1); MEAN CELL HEMOGLOBIN CONCENTR. 34.2 g/dL (32.4-36.7); MEAN CELL VOLUME 91.8 fL (81.5-99.8); MEAN PLATELET VOLUME 11.2 fL (8.7-11.7); NRBC-AUTO% 0.2 % (0.0-0.2); PLATELET CLUMPS FLAG 10 (0-99); PLATELET COUNT 240 10^3/uL (150-400); RED BLOOD CELL COUNT 4.49 10^6/uL (4.40-6.38); RED CELL DISTRIBUTION WIDTH 15.2 % (11.5-15.2)
[2017-09-15 06:11] LABS: ANION GAP 13 mEq/L (8-16); CALCIUM 8.4 mg/dL (8.5-10.4); CARBON DIOXIDE 28 mEq/l (22-31); CHLORIDE 102 mEq/L (97-110); GLOMERULAR FILTRATION RATE > 60; GLUCOSE 77 mg/dL (70-100); POTASSIUM 4.2 mEq/L (3.5-5.2); SODIUM 143 mEq/L (134-144)
[2017-09-15] MEDS: predniSONE 20 MG TAB PO SCH (07:51)
[2017-09-15] MEDS: ASPIRIN 81 MG CHEWABLE TAB PO SCH (07:51)
[2017-09-15] MEDS: guaiFENesin 600 MG TAB.ER PO SCH ×2 (07:51→22:16)
[2017-09-15] MEDS: METOPROLOL SUCCINATE XR 25 MG TAB PO SCH (07:51)
[2017-09-15] MEDS: ACETAMINOPHEN 325 MG TAB PO PRN (07:53)
[2017-09-15] MEDS: AZITHROMYCIN IV 500 MG in D5W 250 ML IV SCH (08:40)
--- NOTE | 2017-09-15 10:00 | HOSPPROG ---
Hospitalist Progress Note Assessment/Plan: # acute hypoxic resp failure - clinical picture most c/w pna and pulm edema, however consider PE given hypoxia and risk factors - cont with abx, lasix - IS, flutter valve # R basilar pna, RAD exacerbation - cont to tx for CAP with rocephin and azith; cont pred - sputum cx with oropharyngeal akash # severe sepsis - d/t pna; resolved # indet troponin - d/t demand; cath 2014 with mild CAD - discussed options - consider CT cor in next few days # SVT - resolved with DCCV - cont metop # acute on chronic dCHF, porcine AVR - better today, cont lasix IV - will follow with Dr Sewell as outpatient # hypothyroid - synthroid Subjective: breathing feels better today; discussed all options in managment of his care Objective: Vital Signs Temp Pulse Resp BP Pulse Ox 36.8 C 82 22 H 118/72 94 09/15/17 08:00 09/15/17 08:00 09/15/17 08:00 09/15/17 08:00 09/15/17 08:00 Microbiology 09/13/17 22:30 - Final Sputum, Expectorated Laboratory Results 09/15/17 04:29 09/15/17 04:29 09/14/17 09/15/17 09/16/17 05:59 05:59 05:59 Intake Total 2150 1975 Output Total 2550 1805 Balance -400 170 PT 14.3 SEC (12.0-15.0) 09/12/17 17:17 INR 1.12 (0.83-1.16) 09/12/17 17:17 - Time Spent With Patient Time Spent with Patient: greater than 35 minutes Time Spent with Patient: Greater than 35 minutes spent on this patients care, greater than 50% of time spent counseling, educating, and coordinating care regarding the above mentioned plan. - Physical Exam Constitutional: no apparent distress, appears nourished Cardiovascular: regular rate and rhythym, systolic murmur, diastolic murmur, No irregularly irregular Respiratory: no rales or rhonchi, clear to auscultation, respiratory distress ( mild) Gastrointestinal: normoactive bowel sounds, soft, non-tender abdomen, no palpable masses ICD10 Worksheet Patient Problems: Problems Problem Status Onset Severe sepsis Acute Cough Acute Pulmonary edema Acute Hypoxia Acute SVT (supraventricular tachycardia) Acute Pneumonia Acute Elevated troponin Acute Reactive airway disease Acute
[2017-09-15] MEDS: FUROSEMIDE 20 MG/2 ML VIAL IVP SCH ×2 (10:10→15:08)
--- NOTE | 2017-09-15 12:05 | SOAPPROG ---
SOAP Progress Note Assessment/Plan: Assessment: 1. PNA 2.CHF, valvular heart disease 3.History of hodgkins 4.History Burkitts like lymphoma Plan:Continue current rx, will follow 09/15/17 12:03 Subjective: Feeling better Objective: Vital Signs Temp Pulse Resp BP Pulse Ox 98.3 F 82 22 H 118/72 94 09/15/17 08:00 09/15/17 08:00 09/15/17 08:00 09/15/17 08:00 09/15/17 08:00 Microbiology 09/13/17 22:30 - Final Sputum, Expectorated Laboratory Results 09/15/17 04:29 09/15/17 04:29 09/14/17 09/15/17 09/16/17 05:59 05:59 05:59 Intake Total 2150 1975 800 Output Total 2550 1805 900 Balance -400 170 -100 PT 14.3 SEC (12.0-15.0) 09/12/17 17:17 INR 1.12 (0.83-1.16) 09/12/17 17:17 Physical Exam - Physical Exam General Appearance: alert, mild distress Respiratory: rales, wheezing Cardiac/Chest: regular rate, rhythm Abdomen: normal bowel sounds, non-tender ICD10 Worksheet Patient Problems: Problems Problem Status Onset Elevated troponin Acute Pneumonia Acute Reactive airway disease Acute SVT (supraventricular tachycardia) Acute Severe sepsis Acute Cough Acute Hypoxia Acute Pulmonary edema Acute
--- NOTE | 2017-09-15 15:53 | ASMTCMCOM ---
CM Note CM Note Notes: Reviewed chart regarding discharge plan, pt's progress. Pt will likely discharge home independently w/ family support when medically stable. CM will cont to follow for any potential needs or concerns. Current Discharge Plan: Home independently Date Signed: 09/15/2017 03:52 PM Electronically Signed By:Yohana Echevarria RN
[2017-09-15] MEDS: ATORVASTATIN CALCIUM 20 MG TAB PO SCH (22:15)
[2017-09-15] MEDS: BENZONATATE 100 MG CAP PO PRN (22:16)
[2017-09-16] MEDS: IPRATROPIUM/ALBUTEROL 3 ML DEYVIAL IH SCH ×5 (00:04→22:24)
[2017-09-16 05:36] LABS: % IMMATURE GRANULYOCYTES 0.4 % (0.0-1.1); ABSOLUTE IMMATURE GRANULOCYTES 0.05 10^3/uL (0.00-0.10); ABSOLUTE NRBC COUNT 0.02 10^3/uL (0-0.01); ADD DIFF? NO; ADD MORPH? NO; ADD SCAN? NO; ATYPICAL LYMPHOCYTE FLAG 0 (0-99); FRAGMENT RBC FLAG 0 (0-99); HEMATOCRIT 41.6 % (40.0-51.0); HEMOGLOBIN 13.7 g/dL (13.7-17.5); LEFT SHIFT FLG 0 (0-99); LIPEMIA HEMOLYSIS FLAG 80 (0-99); MEAN CELL HEMOGLOBIN 30.4 pg (27.9-34.1); MEAN CELL HEMOGLOBIN CONCENTR. 32.9 g/dL (32.4-36.7); MEAN CELL VOLUME 92.2 fL (81.5-99.8); MEAN PLATELET VOLUME 10.9 fL (8.7-11.7); NRBC-AUTO% 0.2 % (0.0-0.2); PLATELET CLUMPS FLAG 0 (0-99); PLATELET COUNT 289 10^3/uL (150-400); RED BLOOD CELL COUNT 4.51 10^6/uL (4.40-6.38)
[2017-09-16] MEDS: BENZONATATE 100 MG CAP PO PRN ×2 (05:39→17:13)
[2017-09-16] MEDS: LEVOTHYROXINE 100 MCG TAB PO SCH (05:39)
[2017-09-16 06:05] LABS: ANION GAP 12 mEq/L (8-16); CALCIUM 8.5 mg/dL (8.5-10.4); CARBON DIOXIDE 28 mEq/l (22-31); CHLORIDE 102 mEq/L (97-110); GLOMERULAR FILTRATION RATE > 60; GLUCOSE 84 mg/dL (70-100); POTASSIUM 4.4 mEq/L (3.5-5.2); SODIUM 142 mEq/L (134-144)
[2017-09-16] MEDS: ACETAMINOPHEN 325 MG TAB PO PRN ×2 (06:48→10:36)
--- NOTE | 2017-09-16 07:21 | SOAPPROG ---
SOAP Progress Note Assessment/Plan: Assessment: 1. PNA 2.CHF, valvular heart disease. Still with orthopnea although weight is down 3.History of hodgkins 4.History Burkitts like lymphoma Plan:Continue current rx, will follow. Review cxr when available 09/15/17 12:03 09/16/17 07:19 Subjective: Some dyspnea when lying flat Objective: Vital Signs Temp Pulse Resp BP Pulse Ox 98.4 F 90 16 157/90 H 95 09/16/17 04:00 09/16/17 04:00 09/16/17 05:27 09/16/17 04:00 09/16/17 05:27 Microbiology 09/13/17 22:30 - Final Sputum, Expectorated Sputum Culture - Final Laboratory Results 09/16/17 04:22 09/16/17 04:22 09/15/17 09/16/17 09/17/17 05:59 05:59 05:59 Intake Total 1975 3150 Output Total 1805 3700 Balance 170 -550 PT 14.3 SEC (12.0-15.0) 09/12/17 17:17 INR 1.12 (0.83-1.16) 09/12/17 17:17 Physical Exam - Physical Exam General Appearance: alert, mild distress Respiratory: rales Cardiac/Chest: regular rate, rhythm ICD10 Worksheet Patient Problems: Problems Problem Status Onset Elevated troponin Acute Pneumonia Acute Reactive airway disease Acute SVT (supraventricular tachycardia) Acute Severe sepsis Acute Cough Acute Hypoxia Acute Pulmonary edema Acute
[2017-09-16] MEDS: METOPROLOL SUCCINATE XR 25 MG TAB PO SCH (09:50)
[2017-09-16] MEDS: ASPIRIN 81 MG CHEWABLE TAB PO SCH (09:50)
[2017-09-16] MEDS: predniSONE 20 MG TAB PO SCH (09:51)
[2017-09-16] MEDS: guaiFENesin 600 MG TAB.ER PO SCH ×2 (09:51→20:35)
[2017-09-16] MEDS: AZITHROMYCIN IV 500 MG in D5W 250 ML IV SCH (09:56)
[2017-09-16] MEDS ORDERED: FUROSEMIDE 20 MG/2 ML VIAL IVP ONE ×2 (10:43→20:00)
--- NOTE | 2017-09-16 13:26 | HOSPPROG ---
Hospitalist Progress Note Assessment/Plan: # acute hypoxic resp failure - clinical picture most c/w pna and pulm edema - cont with abx, lasix - IS, flutter valve # BAKER - similar to his hx migraines # R basilar pna, RAD exacerbation - cont to tx for CAP with rocephin and azith; cont pred - sputum cx with oropharyngeal akash # severe sepsis - d/t pna; resolved # indet troponin - d/t demand; cath 2014 with mild CAD - discussed options - consider CT cor in next few days # SVT - resolved with DCCV - cont metop # acute on chronic dCHF, porcine AVR - better today, cont lasix IV - will follow with Dr Sewell as outpatient # hypothyroid - synthroid Subjective: breathing slightly better today; c/o migraine Objective: Vital Signs Temp Pulse Resp BP Pulse Ox 36.8 C 90 16 123/78 H 90 L 09/16/17 11:39 09/16/17 11:39 09/16/17 11:39 09/16/17 11:39 09/16/17 11:39 Microbiology 09/13/17 22:30 - Final Sputum, Expectorated Sputum Culture - Final Laboratory Results 09/16/17 04:22 09/16/17 04:22 09/15/17 09/16/17 09/17/17 05:59 05:59 05:59 Intake Total 1975 3150 Output Total 1805 3700 950 Balance 170 -550 -950 PT 14.3 SEC (12.0-15.0) 09/12/17 17:17 INR 1.12 (0.83-1.16) 09/12/17 17:17 CXR personally reviewed tele personally reviewed - Physical Exam Constitutional: no apparent distress, appears nourished Cardiovascular: regular rate and rhythym, systolic murmur, No irregularly irregular, No diastolic murmur Respiratory: no respiratory distress, inspiratory crackles (mild at bases), No reduced air movement, No expiratory wheeze Gastrointestinal: normoactive bowel sounds, soft, non-tender abdomen, no palpable masses ICD10 Worksheet Patient Problems: Problems Problem Status Onset Severe sepsis Acute Cough Acute Pulmonary edema Acute Hypoxia Acute SVT (supraventricular tachycardia) Acute Pneumonia Acute Elevated troponin Acute Reactive airway disease Acute
[2017-09-16] MEDS ORDERED: ENOXAPARIN 40 MG/0.4 ML SYR SC SCH (13:30)
[2017-09-16] MEDS: ACETAMINOPHEN 500 MG TAB PO PRN ×2 (15:32→23:31)
[2017-09-16] MEDS: ATORVASTATIN CALCIUM 20 MG TAB PO SCH (20:35)
[2017-09-16] MEDS: guaiFENesin/CODEINE PHOS 10 ML UDCUP PO PRN (23:31)
[2017-09-17 04:51] VITALS: TEMP 98.3
[2017-09-17] MEDS: IPRATROPIUM/ALBUTEROL 3 ML DEYVIAL IH SCH (05:13)
[2017-09-17 05:16] VITALS: RESP 16
[2017-09-17 05:25] LABS: % IMMATURE GRANULYOCYTES 0.5 % (0.0-1.1); ABSOLUTE IMMATURE GRANULOCYTES 0.05 10^3/uL (0.00-0.10); ADD DIFF? NO; ADD MORPH? NO; ADD SCAN? NO; ATYPICAL LYMPHOCYTE FLAG 0 (0-99); FRAGMENT RBC FLAG 0 (0-99); HEMATOCRIT 41.8 % (40.0-51.0); HEMOGLOBIN 14.5 g/dL (13.7-17.5); LEFT SHIFT FLG 0 (0-99); LIPEMIA HEMOLYSIS FLAG 90 (0-99); MEAN CELL HEMOGLOBIN 31.5 pg (27.9-34.1); MEAN CELL HEMOGLOBIN CONCENTR. 34.7 g/dL (32.4-36.7); MEAN CELL VOLUME 90.9 fL (81.5-99.8); MEAN PLATELET VOLUME 10.8 fL (8.7-11.7); PLATELET CLUMPS FLAG 0 (0-99); PLATELET COUNT 337 10^3/uL (150-400); RED CELL DISTRIBUTION WIDTH 15.1 % (11.5-15.2)
[2017-09-17 05:38] LABS: ANION GAP 10 mEq/L (8-16); CALCIUM 8.7 mg/dL (8.5-10.4); CARBON DIOXIDE 27 mEq/l (22-31); CHLORIDE 102 mEq/L (97-110); GLOMERULAR FILTRATION RATE > 60; GLUCOSE 98 mg/dL (70-100); POTASSIUM 4.5 mEq/L (3.5-5.2); SODIUM 139 mEq/L (134-144)
[2017-09-17] MEDS: LEVOTHYROXINE 100 MCG TAB PO SCH (06:07)
[2017-09-17 07:54] VITALS: BP 131/79; PULSE 89; O2SAT 91
[2017-09-17] MEDS: ASPIRIN 81 MG CHEWABLE TAB PO SCH (08:52)
[2017-09-17] MEDS: METOPROLOL SUCCINATE XR 25 MG TAB PO SCH (08:53)
[2017-09-17] MEDS: predniSONE 20 MG TAB PO SCH (08:53)
[2017-09-17] MEDS: guaiFENesin 600 MG TAB.ER PO SCH (08:54)
[2017-09-17] MEDS ORDERED: AZITHROMYCIN 250 MG TAB PO ONE (09:00)
--- NOTE | 2017-09-17 10:30 | GDS ---
[f rep st] DISCHARGE SUMMARY ALL DIAGNOSES: 1. Acute hypoxic respiratory failure. 2. Right basilar pneumonia. 3. Reactive airways disease exacerbation. 4. Severe sepsis. 5. Indeterminate troponin. 6. Supraventricular tachycardia, resolved with DC cardioversion. 7. Byuyr-xf-mknvmux diastolic congestive heart failure. 8. Porcine aortic valve replacement. 9. Hypothyroid. PERTINENT STUDIES: Echocardiogram showing a normal functioning porcine valve, normal ejection fracti on. HOSPITAL COURSE BY PROBLEM: 1. Right basilar pneumonia and reactive disease exacerbation: He has been treated with a 5-day cour se of azithromycin as well as Rocephin. He was initially hypoxic, requiring 4 L. This is markedly i mproved. He will get an additional 2 days of Levaquin. He has also completed 5 days of prednisone. On the day of discharge, he is on room air, breathing comfortably, ambulating. He does not feel eladio te back to his baseline breathing, however. 2. Gbulb-fi-wmmxkgm diastolic CHF as well as a porcine aortic valve: He follows with Dr. Sewell. He did receive IV Lasix as an inpatient. He has diuresed quite well with a total of 12 pounds of weight loss as an inpatient. His potassium has been stable and he has not received any potassium supplemen tation. On discharge, I will give him 20 mg of Lasix p.o. daily. I have given him strict instructio ns on following daily weights and the need to follow up with labs very soon. He will follow up with Dr. Sewell soon. The fact that he is now having some pulmonary edema may be an early indication of his porcine valve failing, though this was not seen on echocardiogram. 3. SVT: He underwent DC cardioversion in the emergency department. He has been in sinus rhythm sin ce. He has was started on metoprolol to prevent this. He will return to the emergency department if he has any ongoing palpitations or shortness of breath. He will follow with Dr. Sewell for this. 4. Indeterminate troponin: Peaked about 0.2. He did have a relatively normal catheterization in . We discussed different options for ischemic eval, though he would prefer to follow up with Dr. Caty hanna, which I think is appropriate. STUDIES PENDING AT THE TIME OF DISCHARGE: None. BILLING: I spent more than 30 minutes on the day of discharge coordinating care. /[id number]/MODL
--- NOTE | 2017-09-17 16:48 | ASDISCHSUM ---
Discharge Information Plan Status:Home with No Needs Medically Cleared to Leave:09/16/2017 Discharge Date:09/17/2017 10:38 AM CM D/C Disposition:Home, Routine, Self-Care ADT D/C Disposition:Home, Routine, Self-Care Projected Discharge Date:09/17/2017 10:38 AM Transportation at D/C:Family Discharge Delay Reason: Follow-Up Date:09/17/2017 10:38 AM Discharge Slot: Final Diagnosis: Placement Information Patient Contact Information Contact Name:DANICAJOSELEATHA Relationship: Address:[address] [place] Phone: State/Zip Code:[place] [address] Email: Financial Information Financial Class:HMO and PPO Plans Primary Plan Desc: OUT OF STATE PPO Primary Plan Number:[id number] Secondary Plan Desc: Secondary Plan Number: Assessment Information [facility] CM Progress Note CM Note CM Note Notes: Patient admitted for PNA and RAD. He is being treated with antibiotics, steroids, and nebulizers. Also being monitored via telemtry for SVT. He lives with , works, and is independent in all ADLs. No therapies ordered, no d/c needs anticipated. CM available if needs arise. Date Signed: 09/13/2017 01:55 PM Electronically Signed By:Glenna Fuller RN [facility] CM Progress Note CM Note CM Note Notes: Reviewed chart regarding discharge plan, pt's progress. Pt will likely discharge home independently w/ family support when medically stable. CM will cont to follow for any potential needs or concerns. Current Discharge Plan: Home independently Date Signed: 09/15/2017 03:52 PM Electronically Signed By:Yohana Echevarria RN Intervention Information
== END 2017-09-17 10:38 | disposition home or self-care (01) | DRG 871 ==
LOC: EDBD → EDUNIT# → INTOOBSV 18:18 → F2W 19:36 → OBSVTOIN 22:58
PROVIDERS: ADMIT Internal Medicine; ATTEND Internal Medicine
PROC: 5A2204Z Restoration of Cardiac Rhythm, Single (ICD-10-PCS; principal; 2017-09-12)
DX: A41.9 Sepsis, unspecified organism (principal); R65.20 Severe sepsis without septic shock; J18.9 Pneumonia, unspecified organism; I47.1 Supraventricular tachycardia; J45.901 Unspecified asthma with (acute) exacerbation; I50.33 Acute on chronic diastolic (congestive) heart failure; E87.2 Acidosis; E03.9 Hypothyroidism, unspecified; G43.909 Migraine, unspecified, not intractable, without status migrainosus; I25.10 Atherosclerotic heart disease of native coronary artery without angina pectoris; Z85.71 Personal history of Hodgkin lymphoma; Z95.2 Presence of prosthetic heart valve; Z85.850 Personal history of malignant neoplasm of thyroid
CPT/HCPCS: 96365; J0456; J0696; J1650; J1940

== ENCOUNTER → 2017-09-12 | Outpatient (CLI) | payer BC | LOC: BMCIMAGING 14:30 | PROVIDERS: ATTEND Family Medicine | DX: J18.9 Pneumonia, unspecified organism (principal) ==

== ENCOUNTER 2017-12-18 06:43 | Observation (INO) | payer BC ==
[2017-12-18] MEDS ORDERED: NS 1,000 ML IV ONE (06:45)
--- NOTE | 2017-12-18 07:11 | CPEKG ---
Heart Rate: 82 RR Interval: 732 P-R Interval: 148 QRSD Interval: 136 QT Interval: 412 QTC Interval: 482 P [place]: 71 QRS [place]: 56 T Wave [place]: 27 EKG Severity - ABNORMAL ECG - EKG Impression: SINUS RHYTHM EKG Impression: PROBABLE LEFT ATRIAL ABNORMALITY EKG Impression: LEFT BUNDLE BRANCH BLOCK Electronically Signed By: Butch Rosario 18-Dec-2017 19:15:33
[2017-12-18 07:20] LABS: PLATELET COUNT 292 10^3/uL (150-400)
[2017-12-18 07:28] LABS: INR 0.99 (0.83-1.16); PROTIME(PATIENT) 13.3 SEC (12.0-15.0)
--- NOTE | 2017-12-18 07:48 | PDANEPAE ---
ANE Past Medical History - Cardiovascular History Hx Hypertension: No Hx Arrhythmias: Yes Cardiovascular History Comment: chol med,L BBB - Pulmonary History Hx Oxygen in Use at Home: No Hx Sleep Apnea: Yes - Neurologic History Hx Cerebrovascular Accident: No Hx Seizures: No Hx Dementia: No - Endocrine History Hx Diabetes: No - Renal History Hx Renal Disorders: No - Liver History Hx Hepatic Disorders: No - Neurological & Psychiatric Hx Hx Neurological and Psychiatric Disorders: No - Cancer History Hx Cancer: Yes Cancer History Comment: Non-Hodgkins, maligant melanoma,papilary thyroid carcinoma - Congenital Disorder History Hx Congenital Disorders: No - GI History Hx Gastrointestinal Disorders: Yes 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 - Other Health History Other Health History: migraines every 2 weeks - Chronic Pain History Chronic Pain: No - Surgical History Prior Surgeries: 1980 staging laparotomy, mediastinoscopy for Non-Hodgkins, 93 thyroidectomy L conservative neck dissection x2,00 Aortic valve replacement, malignant melanoma thigh 02, 4 shoulder surgeries,L knee scope ANE Review of Systems Review of Systems: ANE Patient History - Allergies Allergies/Adverse Reactions: bacitracin [Bacitracin] Allergy (Intermediate, Verified 04/14/16 10:36) Other-Enter Comments adhesive [Adhesive] Allergy (Mild, Verified 04/14/16 10:36) Other-Enter Comments HAYFEVER Allergy (Mild, Uncoded 04/14/16 10:36) Other-Enter Comments - Home Medications Home Medications: Aspirin [Aspirin 81mg (*)] 81 mg PO DAILY 03/01/16 [Last Taken 09/12/17] Atorvastatin Calcium [Lipitor 20 mg (*)] 20 mg PO HS 03/01/16 [Last Taken ] Levothyroxine [Synthroid 200 mcg (*)] 200 mcg PO DAILY06 03/01/16 [Last Taken ] Magnesium Oxide [Magnesium] 500 mg PO DAILY 03/01/16 [Last Taken 09/12/17] Multivitamins [Multivitamin (*)] 1 each PO DAILY 03/01/16 [Last Taken 09/12/17] Riboflavin [Vitamin B-2] 400 mg PO DAILY 03/01/16 [Last Taken 09/12/17] Testosterone 10 gm TP DAILY 03/01/16 [Last Taken 09/12/17] Herbals/Supplements -Info Only 1 ea PO DAILY 12/13/17 [Last Taken Unknown] Tadalafil [Cialis] 10 mg PO AD PRN 12/13/17 [Last Taken Unknown] - Smoking Hx Smoking Status: Never smoked ANE Labs/Vital Signs - Labs Result Diagrams: 12/18/17 07:10 12/18/17 07:10 - Vital Signs Height: 180.3 cm Weight: 96.1 kg ANE Physical Exam - Airway Neck exam: FROM Mallampati Score: Class 2 Mouth exam: normal dental/mouth exam - Pulmonary Pulmonary: no respiratory distress - Cardiovascular Cardiovascular: regular rate and rhythym - ASA Status ASA Status: III ANE Anesthesia Plan Anesthesia Plan: general endotracheal anesthesia Total IV Anesthesia: Yes
[2017-12-18] MEDS ORDERED: HEPARIN 10,000 UNIT/10 ML MDV (1,000 UNIT/ML) ONE (07:50)
[2017-12-18] MEDS ORDERED: LIDOCAINE 1% 300 MG/30 ML SDV ONE (07:50)
[2017-12-18] MEDS ORDERED: BUPIVACAINE 0.5% 30 ML SDV ONE (07:50)
[2017-12-18] MEDS ORDERED: ISOPROTERENOL HCL/D5W 0.2 MG/50 ML BAG IV ONE (07:51)
[2017-12-18] MEDS ORDERED: REMIFENTANIL HCL 1 MG VIAL ONE (08:20)
[2017-12-18] MEDS ORDERED: MIDAZOLAM 2 MG/2 ML VIAL ONE (08:21)
[2017-12-18] MEDS ORDERED: PROPOFOL/EMULSION 500 MG/50 ML BOTTLE IV ONE ×2 (08:21→09:18)
[2017-12-18] MEDS ORDERED: LIDOCAINE 2% 100 MG/5 ML SYR ONE (08:31)
[2017-12-18] MEDS ORDERED: ROCURONIUM 100 MG/10 ML VIAL ONE (08:31)
[2017-12-18] MEDS ORDERED: PHENYLEPHRINE 10 MG/ML SDV ONE (08:33)
--- NOTE | 2017-12-18 08:42 | PDGENHP ---
History & Physical Chief Complaint: symptomatic svt History of Present Illness: palpitations Relevant Physical Exam: [id number] Cardiorespiratory Assessment: sx svt for ablation
[2017-12-18] MEDS ORDERED: SUGAMMADEX SODIUM 200 MG/2 ML VIAL IVP ONE ×2 (11:06)
[2017-12-18] MEDS ORDERED: ACETAMINOPHEN 325 MG TAB PO PRN (11:20)
[2017-12-18] MEDS ORDERED: ONDANSETRON 4 MG/2 ML VIAL IVP PRN ×2 (11:20→11:35)
[2017-12-18] MEDS ORDERED: OXYCODONE/APAP 5/325 TAB PO PRN (11:20)
--- NOTE | 2017-12-18 11:20 | EPPROC ---
Electrophysiology Procedure Note: ELECTROPHYSIOLOGIC STUDY AND CATHETER MEDIATED ABLATION FOR SUBEUSTACHIAN ISTHMUS DEPENDENT COUNTERCLOCKWISE ATRIAL FLUTTER: INDICATION: Narrow complex tachycardia requiring cardioversion PROCEDURES PERFORMED: 97214-21 EP evaluation with RA/RV/LA pace/record, with arrhythmia induction 86565-27 EP evaluation with RA/RV pace record, insert/reposition catheter, with arrhythmia induction 63401 SVT ablation 11159 3D mapping Fluoroscopy Catheters & Anesthesia: The patient arrived in the Electrophysiology Laboratory in the fasting state. The right clavicular region, right groin, and left groin area were prepped and draped in the usual sterile manner. Anesthesiologist Dr. Bryon Bush administered general anesthesia. Appropriate non-invasive blood pressure, pulse oximetry and end-tidal CO2 monitoring was established. All catheters were placed percutaneously using the modified Seldinger technique , and advanced into position under fluoroscopic guidance. One #7 Somali deflectable octapolar electrode catheter was advanced to the His-bundle position via the left femoral vein (2mm spacing; except the proximal ring which was 25cm from the tip used for unipolar recordings). One quadrapolar catheter was placed near the coronary sinus ostium. Coronary sinus could not be accessed from the femoral approach. One # 7 Somali Halo catheter was inserted through the right femoral vein and was placed at the tricuspid annulus. Heparin was administered to keep ACT > 200 seconds. Programmed stimulation was performed from the right atrium, coronary sinus ( left atrium) and right ventricle. Parahisian pacing demonstrated VA block. On arrival to the Electrophysiology Laboratory the patient was in sinus rhythm with left bundle-branch block. SCL 700 ms AH 65 ms HV 60 ms (LBBB). Antegrade WBB 380 ms, no slow AV danny pathway. Retrograde VA block. Catheter manipulation near the proximal right bundle branch did cause transient AV block x2. Atrial flutter, CL 220 ms was easily induced by CS pacing. Entrainment mapping from lateral TA, septal TA, proximal CS confirmed cavotricuspid isthmus dependent atrial flutter. In preparation for ablation of typical atrial flutter, a high-resolution 3D (3 dimensional) Carto electroanatomical map of the sub-Eustachian isthmus and right atrium was obtained during pacing of the posterolateral coronary sinus. For ablation of typical atrial flutter, one #8.5 Somali ramp1 sheath was placed in the right atrium. A #8 Somali deflectable quadrapolar electrode catheter ( 2mm-5mm-2mm spacing) with 3.5 mm irrigated tip electrode and location sensor for the [employer] mapping system was inserted in the long sheath and advanced to the right atrium. Radiofrequency applications were applied between the tricuspid annulus at 0630 oclock as seen in the TONGAN view and the inferior vena cava. This achieved conduction block across the isthmus. Following ablation of the atrial flutter, programmed atrial stimulation was performed in the baseline state and during infusion of isoproterenol 2 mcg/min. No atrial arrhythmias were inducible post ablation. Post ablation, a high-resolution electroanatomical map of the sub-Eustachian isthmus was obtained during pacing of the posterolateral coronary sinus. This confirmed conduction block across the sub-Eustachian isthmus. Bidirectional block was also confirmed by pacing. The catheters were removed. Protamine was administered. Sheaths were removed in the EP lab after applying subcutaneous purse string suture. The patient was transferred to the cardiovascular holding area in stable condition. There were no apparent complications. CONCLUSIONS: 1. Cavotricuspid isthmus dependent counterclockwise atrial flutter. 2. Successful catheter mediated ablation of cavotricuspid isthmus achieving bi -directional conduction block across cavotricuspid isthmus. 3. No atrial arrhythmias inducible post ablation. 4. Left bundle-branch block, pre existing. 5. No apparent complications. Patient Problems: Problems Problem Status Onset Severe sepsis Acute Cough Acute Pulmonary edema Acute Hypoxia Acute SVT (supraventricular tachycardia) Acute Pneumonia Acute Elevated troponin Acute Reactive airway disease Acute
[2017-12-18] MEDS ORDERED: ALBUTEROL 3 ML DEYVIAL IH PRN (11:35)
[2017-12-18] MEDS ORDERED: fentaNYL 100 MCG/2 ML INJ IVP PRN (11:35)
[2017-12-18] MEDS ORDERED: NALOXONE HCL 0.4 MG/ML INJ IVP PRN (11:35)
--- NOTE | 2017-12-18 11:35 | POSTANESTH ---
Post Anesthetic Evaluation Cardiovascular Status: Similar to Pre-Op Cond Respiratory Status: Similar to Pre-op Cond. Level of Consciousness/Mental Status: Mildly Sleepy, Arousable Pain Control: Adequate, Prn Tx Ordered Nausea/Vomiting Control: Adequate, Prn Tx Ordered Complications Possibly Related to Anesthesia: None Noted
--- NOTE | 2017-12-18 11:41 | CPEKG ---
Heart Rate: 86 RR Interval: 698 P-R Interval: 180 QRSD Interval: 142 QT Interval: 432 QTC Interval: 517 P [place]: 68 QRS [place]: -26 T Wave [place]: 90 EKG Severity - ABNORMAL ECG - EKG Impression: SINUS RHYTHM EKG Impression: PROBABLE LEFT ATRIAL ABNORMALITY EKG Impression: LEFT BUNDLE BRANCH BLOCK Electronically Signed By: Butch Rosario 18-Dec-2017 19:15:23
[2017-12-18] MEDS ORDERED: ATORVASTATIN CALCIUM 20 MG TAB PO SCH (21:00)
[2017-12-19 04:09] VITALS: O2SAT 95
[2017-12-19 04:18] LABS: PLATELET COUNT 260 10^3/uL (150-400)
[2017-12-19 04:40] LABS: CREATINE KINASE 73 IU/L (0-224)
[2017-12-19] MEDS ORDERED: LEVOTHYROXINE 200 MCG TAB PO SCH (06:00)
[2017-12-19 07:42] VITALS: BP 134/83; PULSE 94; RESP 19; TEMP 98.4
--- NOTE | 2017-12-19 08:45 | CPEKG ---
Heart Rate: 89 RR Interval: 674 P-R Interval: 152 QRSD Interval: 134 QT Interval: 412 QTC Interval: 502 P [place]: 70 QRS [place]: 43 T Wave [place]: 227 EKG Severity - ABNORMAL ECG - EKG Impression: SINUS RHYTHM EKG Impression: LEFT ATRIAL ABNORMALITY EKG Impression: LEFT BUNDLE BRANCH BLOCK Electronically Signed By: Butch Rosario 19-Dec-2017 09:05:15
[2017-12-19] MEDS ORDERED: ASPIRIN 81 MG CHEWABLE TAB PO SCH (09:00)
[2017-12-19] MEDS ORDERED: METOPROLOL SUCCINATE XR 25 MG TAB PO SCH (09:00)
[2017-12-19] MEDS ORDERED: MAGNESIUM OXIDE 400 MG TAB PO SCH (09:00)
--- NOTE | 2017-12-19 10:01 | ASMTCASEMG ---
Living Arrangements What is your living Answers: With Spouse arrangement? Who do you live with? Type Of Residence What kind of residence do Answers: House you live in? Discharge Plan Comments Coordination Status Comments Notes: Pt is a 57 y/o man admitted for SVT. Pt will most likely d/c independent when medically stable. No therapies ordered at this time. CM available for changes. Plan: Independent Date Signed: 12/19/2017 10:00 AM Electronically Signed By:SHAISTA Campo
--- NOTE | 2017-12-19 10:42 | ECHO ---
[email or web address] [address] [address] Main: [phone] Fax: Transthoracic Echocardiogram Name: JOSE HAMMONDS MR#: [id number] Study Date: 12/19/2017 Study Time: 09:42 AM Date of : 1960 Age: 57 year(s) Height: 177.8 cm (70 in.) Weight: 95.71 kg (211 lb.) BSA: 2.14 m2 Gender: Male Examination: Echo Indication: Post SVT Ablation Image Quality: Contrast: Requested by: Butch Rosario BP: 141 mmHg/74 mmHg Heart Rate: Rhythm: Indication: Post SVT Ablation Procedure Staff Edge Inker: Brett Tipton RDCS Reading Physician: Butch Rosario Requesting Provider: Conclusions: EF is 65 %. Diastolic dysfunction is present. . The aortic valve is a porcine bioprosthesis. The AV Vmax is 3.1 m/s, The Max PG is 39 mmHg with a mean PG of 21 mmHg.. No pericardial effusion. Measurements: Chambers Valvular Assessment AV/MV Valvular Assessment TV/PV Normal Normal Normal Name Value Range Name Value Range Name Value Range Ao Janice (MM): 2.5 cm (2.2 cm-3.7 AV Vmax: 3.11 m/s (1 m/s-1.7 PV Vmax: 1.11 m/s (0.6 m/s-0.9 cm) m/s) m/s) IVSd (2D): 1.1 cm (0.6 cm-1.1 AV maxP mmHg ( - ) PV PGmax: 5 mmHg ( - ) cm) AV meanP mmHg ( - ) LVDd (2D): 3.9 cm (4.2 cm-5.9 MIGUEL (VTI): 0.8 cm ( - ) cm) MV E Vmax: 1.11 m/s ( - ) LVDs (2D): 2.6 cm (2.1 cm-4 MV A Vmax: 1.25 m/s ( - ) cm) MV E/A: 0.89 ( - ) LVPWd (2D): 1.2 cm (0.6 cm-1 cm) LVOTd 1.8 cm 1.8 cm mm LVEF (2D): 65 (>=54 %) Continued Measurements: Chambers Valvular Assessment AV/MV Name Value Name Value LADs Lon.8 cm MV E' Septal: 0.03 m/s LA Area: 10.3 cm2 MV E/E' Septal: 34.50 MV E/E' Lateral: 15.20 Patient: JOSE HAMMONDS Study Date: 12/19/2017 Page 1 of 2 09:42 AM Findings: Left Ventricle: Normal size left ventricle. Mild concentric LV hypertrophy. Normal global systolic LV function. EF is 65 %. Diastolic dysfunction is present. . Right Ventricle: Normal size right ventricle. Left Atrium: The left atrium is normal in size. Right Atrium: The right atrium is normal in size. Mitral Valve: Mild mitral valve leaflet calcification is present. Trivial mitral valve regurgitation. Aortic Valve: The aortic valve is a porcine bioprosthesis. The AV Vmax is 3.1 m/s, The Max PG is 39 mmHg with a mean PG of 21 mmHg.. Tricuspid Valve: The tricuspid valve is normal in appearance and function. Pulmonic Valve: The pulmonic valve is normal in appearance and function. Aorta: The aorta is normal. Pericardium: No pericardial effusion. (No Signature Object) Patient: JOSE HAMMONDS Study Date: 12/19/2017 Page 2 of 2 09:42 AM [id number]
--- NOTE | 2017-12-19 22:16 | GDS ---
[f rep st] DISCHARGE SUMMARY DISCHARGE DIAGNOSES: 1. Atrial flutter. 2. Status post atrial flutter ablation. 3. History of aortic valve replacement. 4. History of lymphoma. BRIEF HISTORY: This is a 57-year-old man referred by Dr. Sewell to Dr. Rosario for treatment of SVT. He presented to Urgent Care and was found to be in SVT at 200 beats per minute. He has a history of lymphoma and is status post radiation. He has a history of aortic valve replacement with a porcine bioprosthetic valve. 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 HOSPITAL COURSE: Dr. Rosario performed a successful ablation of the cavotricuspid isthmus achieving bidirectional block. There were no atrial arrhythmias that were inducible post ablation. He has an underlying left bundle branch block. Patient did well overnight without symptoms of chest pain, pressure, or tightness. He has not had any shortness of breath, pain at his groin sites, or swelling in his legs. TESTING DONE: Echocardiogram: Mild concentric LVH, aortic valve is porcine bioprosthetic with mean gradient of 21 mmHg and max gradient of 39 mmHg. There is no pericardial effusion. EKG demonstrates sinus rhythm with left bundle branch block. LAB WORK: WBC 17.7, hemoglobin 15.9, hematocrit 47.7, platelets 260. Sodium 142, potassium 5.0, chloride 106, bicarb 28, BUN 17, creatinine 1.2, glucose 95. CK 73. Troponin is 0.498 which is elevated and to be expected post ablation. PHYSICAL EXAMINATION: VITAL SIGNS: Blood pressure is 134/83, pulse is 94, respirations 19, temperature is 36.9, O2 saturation on room air is 95%. GENERAL : He is alert and oriented, sitting up in bed in no acute distress. CARDIAC: Regular rate and rhythm with a 2/6 systolic murmur. LUNGS: Clear to auscultation. ABDOMEN: Soft and nontender. Groin sites are without hematoma. There is trace ecchymosis on left side. EXTREMITIES: Warm. No discoloration. Bilateral +2 pedal pulses. DISCHARGE MEDICATIONS: Please see discharge medication reconciliation. Of note , his metoprolol was stopped as this was started only for his atrial flutter, and he will take 81 mg of enteric-coated aspirin daily for at least 6 weeks post ablation. DISCHARGE INSTRUCTIONS: Post ablation activity restrictions were reviewed with patient, and he was given written instructions at the time of discharge. FOLLOWUP: He has a followup with Dr. Rosario on January 16 at 3:30. /[id number]/MODL MTDD
== END 2017-12-19 11:35 | disposition home or self-care (01) ==
LOC: FCATH 06:43 → F2W 12:23
PROVIDERS: ADMIT Internal Medicine Cardiovascular Disease; ATTEND Internal Medicine Cardiovascular Disease
DX: I47.1 Supraventricular tachycardia (principal); I48.92 Unspecified atrial flutter; I44.7 Left bundle-branch block, unspecified; Z95.2 Presence of prosthetic heart valve; Z85.72 Personal history of non-Hodgkin lymphomas; Z85.820 Personal history of malignant melanoma of skin
CPT/HCPCS: 93005; 93306; 93613; 93653; C1730; C1893; G0378; C1731; C1732; J1644; J2001; J2250; J2370; J2704